=== PATIENT | female | born 1990 | race Two or more races ===

== ENCOUNTER 2017-06-22 11:45 | Emergency (ER) | payer SELFPAY ==
[~2017-06-22] VITALS: Ht 162.6 cm; Wt 68.0 kg
[2017-06-22 12:49] VITALS: BP 169/94
== END 2017-06-22 13:16 | disposition home or self-care (01) ==
LOC: EDBD 11:45 → ER 11:45
DX: S10.93XA Contusion of unspecified part of neck, initial encounter (principal); Z88.0 Allergy status to penicillin; V49.49XA Driver injured in collision with other motor vehicles in traffic accident, initial encounter; Y93.89 Activity, other specified; Y99.8 Other external cause status; Y92.410 Unspecified street and highway as the place of occurrence of the external cause